=== PATIENT | male | born 1940 | race Caucasian/White ===

== ENCOUNTER → 2017-02-11 | Outpatient (REF) | payer MEDICARE, OTHER ==
[2017-02-11 18:50] LABS: ERYTHROCYTE SEDIMENTATION RATE 7 mm/hr (0-20); REASON FOR REVIEW COMPREHENSIVE REVIEW
== END ==
LOC: M LAB REF 17:35
PROVIDERS: ATTEND Internal Medicine Medical Oncology
DX: R59.9 Enlarged lymph nodes, unspecified (principal)

== ENCOUNTER 2017-11-19 15:17 | Emergency (ER) | payer OTHER ==
[2017-11-19 16:00] LABS: KETONE, URINE AUTO RFX NEGATIVE (NEGATIVE); MUCUS, URINE RFX SMALL (NEGATIVE); RBC, URINE AUTO RFX 5 /HPF (0-3); SPECIFIC GRAVITY UR AUTO RFX 1.009 (1.002-1.035); SQUAM EPITHELIAL CELL UR AURFX 0 /HPF (0-6)
[2017-11-19 16:03] LABS: LEUKOCYTE ESTERASE UR AUTO RFX 3+ (NEGATIVE); NITRITE, URINE AUTO RFX POSITIVE (NEGATIVE); WBC, URINE AUTO RFX TNTC /HPF (0-3)
[2017-11-19] MEDS: BACTRIM 160MG/800MG DS TAB PO (16:30)
== END 2017-11-19 16:44 | disposition home or self-care (01) ==
LOC: M ED 15:17
DX: N30.90 Cystitis, unspecified without hematuria (principal); E07.9 Disorder of thyroid, unspecified; Z79.890 Hormone replacement therapy; Z79.899 Other long term (current) drug therapy
CPT/HCPCS: 81001

== ENCOUNTER → 2019-04-09 | Outpatient (CLI) | payer MEDICARE ==
[~2019-04-09] MED LIST: BACT800T5 PO; LEVO137T2 PO; MULTCAP PO; OCUVCAP3 PO; TRAM37.53 PO
--- NOTE | 2019-04-09 15:36 | REP ---
Limited pelvic bladder sonography: History: Urinary tract infection. Findings: There is diffuse marked bladder wall thickening and trabeculation. No bladder mass lesion is appreciated. There are two large echogenic shadowing foci which may reflect the bladder calculi. It is difficult to exclude bladder mass lesion versus marked trabeculation. Pre-void bladder volume is calculated at 95 mL and postvoid bladder volume at 41 mL (43% postvoid residual). Multiple small diverticula are suspected. Impression: Markedly trabeculated bladder with an eccentrically thickened wall and multiple diverticula. Question bladder calculi. Neoplastic disease cannot be excluded. Electronically Signed by Marlo Lovett MD 04/09/2019 05:03 P
--- NOTE | 2019-04-09 15:56 | REP ---
Renal sonography: History: Urinary tract infection. Findings: Renal cortical echogenicity pattern is normal and contours are smooth. Right renal dimensions are 11.0 x 5.0 x 5.1 cm. Left kidney measures 10.6 x 4.8 x 5.4 cm. There is an accessory splenule in the left upper quadrant which is unchanged from comparison CT study August 07, 2017. No hydronephrosis is seen on either side. No renal mass lesion is observed. Impression: Negative renal sonography. Accessory splenule noted incidentally in the left upper quadrant. Electronically Signed by Marlo Lovett MD 04/09/2019 05:03 P
== END ==
LOC: M RAD 13:59
PROVIDERS: ATTEND Nurse Practitioner Family
DX: N39.0 Urinary tract infection, site not specified (principal)

== ENCOUNTER 2019-05-28 07:13 | Day surgery (SDC) | payer MEDICARE ==
[~2019-05-28] VITALS: Ht 175.3 cm; Wt 74.4 kg
[~2019-05-28 07:13] MED LIST changes: +ACETAMINOPHEN 1000MG 100ML IV BTL (OFIRMEV) (J0131 PER 10MG) As Ordered ONE; +FINA5TAB2 PO; +LIDOCAINE 1% MDV 20ML VIAL SQ PRN; +LIDOCAINE 2% INJ 100 MG/5 ML SDV (FOR ANES.) As Ordered ONE; +LR 1,000 ML IV ONE; +MIDAZOLAM INJ 2 MG/2 ML VIAL (J2250) As Ordered ONE; +OCUVTAB8 PO; +ONDANSETRON 4MG/2ML VIAL (J2405) As Ordered ONE; +PHENYLephrine HCL 500 MCG/5 ML (100MCG/ML) SYRINGE (J2370) As Ordered ONE; +TAMS1CAP17 PO; +TRIA37.53 PO; +ceFAZolin SOD 2 GM in IV 1 EA IV ONE; +dexameTHASONE 4 MG/ML 1ML VIAL (J1100) As Ordered ONE; +ePHEDrine SULFATE 25 MG/5 ML(5MG/ML) SYRINGE As Ordered ONE; +fentaNYL 100 MCG/2 ML INJECTION (J3010) As Ordered ONE; +propofoL 200 MG/20 ML VIAL As Ordered ONE
[2019-05-28] MEDS ORDERED: SULF1TAB93 PO (08:27)
[2019-05-28] MEDS ORDERED: CIPR500T3 PO (08:27)
[2019-05-28] MEDS ORDERED: BUPIVACAINE HCL 0.25% 30 ML VIAL As Ordered ONE (08:46)
[2019-05-28] MEDS ORDERED: ONDANSETRON 4MG/2ML VIAL (J2405) IV PRN (10:15)
[2019-05-28] MEDS ORDERED: fentaNYL 100 MCG/2 ML INJECTION (J3010) IV PRN (10:15)
[2019-05-28] MEDS ORDERED: IBUPROFEN 600 MG TAB PO PRN (10:30)
[2019-05-28 11:30] VITALS: BP 140/68
--- NOTE | 2019-05-29 20:46 | RO ---
DATE OF PROCEDURE: 05/28/2019 PREPROCEDURE DIAGNOSIS: Bladder calculi and penile (dictation cut off) POSTPROCEDURE DIAGNOSIS: Bladder foreign body, penile lesion and meatal stenosis. PROCEDURE: Cystoscopy with extraction of foreign body, excision of penile lesion and urethral dilation. SURGEON: Dr. Asael Sparrow SPRING TIER: ANESTHESIA: General. INDICATION FOR OPERATION: This is an 79-year-old white male who has bladder calculi and a penile lesion that he wishes removed. He was, therefore, brought to the operating room. DESCRIPTION OF PROCEDURE: The patient was anesthetized with general anesthesia, placed in the lithotomy position, prepped with Betadine paint and draped in an aseptic manner. Time-out was then performed. A 22-[place]ian cystoscope was attempted to be inserted into the meatus without success because of some narrowing. The urethral meatus was then dilated with Toña sounds to 26-Z[place]ian, and the scope was then easily introduced and advanced under direct vision of a 30-degree lens to the bladder. In the bladder, the patient was found to have 4+ trabeculation with numerous diverticula. The calculus was identified in the bladder, grasped with biopsy lithotrite forceps and was able to be extracted. No further calculi were identified even after examining all the diverticula openings. The bladder was then drained and cystoscope was removed. A #15 scalpel was then used to excise the lesion on the ventral surface of the penis at the median raphe. The area was cauterized for hemostasis, and the incision was closed with interrupted #3-0 chromic sutures. Skin glue was then applied to the area. Rectal examination shows a flat 20-gram prostate. The patient was then awakened and sent to recovery room in stable condition having tolerated the procedure well.
== END 2019-05-28 12:08 | disposition home or self-care (01) ==
LOC: M SDC 07:13
PROVIDERS: ATTEND Urology
DX: N21.0 Calculus in bladder (principal); N48.9 Disorder of penis, unspecified; A63.0 Anogenital (venereal) warts; N35.919 Unspecified urethral stricture, male, unspecified site; E03.9 Hypothyroidism, unspecified; Z79.899 Other long term (current) drug therapy
CPT/HCPCS: 52310; 54060; 88300; 88305; J0131; J0690; J1100; J2250; J2370; J2405; J3010

== ENCOUNTER → 2019-06-18 | Outpatient (REF) | payer MEDICARE ==
[~2019-06-18] MED LIST changes: -ACETAMINOPHEN 1000MG 100ML IV BTL (OFIRMEV) (J0131 PER 10MG) As Ordered ONE; +CIPR500T3 PO; -LIDOCAINE 1% MDV 20ML VIAL SQ PRN; -LIDOCAINE 2% INJ 100 MG/5 ML SDV (FOR ANES.) As Ordered ONE; -LR 1,000 ML IV ONE; -MIDAZOLAM INJ 2 MG/2 ML VIAL (J2250) As Ordered ONE; -ONDANSETRON 4MG/2ML VIAL (J2405) As Ordered ONE; -PHENYLephrine HCL 500 MCG/5 ML (100MCG/ML) SYRINGE (J2370) As Ordered ONE; +SULF1TAB93 PO; -ceFAZolin SOD 2 GM in IV 1 EA IV ONE; -dexameTHASONE 4 MG/ML 1ML VIAL (J1100) As Ordered ONE; -ePHEDrine SULFATE 25 MG/5 ML(5MG/ML) SYRINGE As Ordered ONE; -fentaNYL 100 MCG/2 ML INJECTION (J3010) As Ordered ONE; -propofoL 200 MG/20 ML VIAL As Ordered ONE
== END ==
LOC: M SMT 12:42
PROVIDERS: ATTEND Urology
DX: N39.0 Urinary tract infection, site not specified (principal)

== ENCOUNTER → 2020-05-13 | Outpatient (REF) | payer MEDICARE | LOC: M LAB REF 12:20 | PROVIDERS: ATTEND Ophthalmology | DX: D23.112 Other benign neoplasm of skin of right lower eyelid, including canthus (principal) ==

== ENCOUNTER → 2020-06-20 | Outpatient (CLI) | payer MEDICARE ==
--- NOTE | 2020-06-20 11:46 | REP ---
INDICATION: BLADDER STONE,CALCULUS IN BLADDER COMPARISON: 04/09/2019 TECHNIQUE: Real time B-mode ultrasound examination using curved array transducer. FINDINGS: Irregular chronic bladder wall thickening with scattered diverticula and pseudo diverticula are again appreciated and similar to prior examination. Ureteral jets were not visualized during exam. No obvious discrete mass noted. Prevoid bladder measures 7.9 x 5.3 x 4.5 cm (123 cc). Postvoid bladder measures 5.9 x 4.0 x 3.5 cm (54 cc). Postvoid residual: 44% IMPRESSION: 1. Chronic bladder changes. <Electronically signed by Ludin Ramirez > 06/20/20 1145
--- NOTE | 2020-06-20 11:52 | REP ---
INDICATION: BLADDER STONE,CALCULUS IN BLADDER COMPARISON: 04/09/2019 TECHNIQUE: Real time bhakta scale ultrasound examination using curved array transducer. FINDINGS: Bilateral kidneys are normal in contour, size, echogenicity, and reniform shape without hydronephrosis, nephrolithiasis, cystic or renal mass lesion. Right kidney measures 10.8 x 4.8 x 4.7 cm. Left kidney measures 11.2 x 4.9 x 4.7 cm. Incidental 2.3 cm splenule identified in the left upper quadrant. IMPRESSION: Normal renal ultrasound. <Electronically signed by Ludin Ramirez > 06/20/20 1149
== END ==
LOC: M RAD 10:45
PROVIDERS: ATTEND Nurse Practitioner Family
DX: N21.0 Calculus in bladder (principal)

== ENCOUNTER 2022-12-02 22:34 | Day surgery (SDC) | payer MEDICARE ==
[~2022-12-02] VITALS: Ht 157.5 cm; Wt 70.0 kg
[~2022-12-02 22:34] MED LIST changes: +BACTDSTA PO; -SULF1TAB93 PO; -TRIA37.53 PO; +TRIA37.577 PO
[2022-12-02] MEDS ORDERED: ONDANSETRON 4MG 2ML VIAL IV PRN (22:35)
[2022-12-02] MEDS ORDERED: ACETAMINOPHEN TAB 650MG DOSE (2X325MG) PO PRN (22:35)
[2022-12-03] VITALS (7 sets, daily range): BP systolic 83–121; BP diastolic 47–94; TEMP 97.3–97.9; O2SAT 93–100
[2022-12-03] MEDS ORDERED: LEVOTHYROXINE 150MCG TABLET (0.15MG) PO SCH (06:00)
[2022-12-03] MEDS ORDERED: LEVO150T7 PO (06:24)
[2022-12-03] MEDS ORDERED: FURO20TA2 PO (06:24)
[2022-12-03] MEDS ORDERED: HOME MED LIST COMPLETE! XX SCH (06:30)
[2022-12-03] MEDS ORDERED: ONDANSETRON 4MG 2ML VIAL As Ordered ONE (06:50)
[2022-12-03] MEDS ORDERED: propofoL 200 MG/20 ML VIAL As Ordered ONE (06:50)
[2022-12-03] MEDS ORDERED: LIDOCAINE 2% 100MG/5ML SDV (FOR ANES.) As Ordered ONE (06:51)
[2022-12-03] MEDS ORDERED: fentaNYL 100 MCG/2 ML INJECTION As Ordered ONE (06:53)
[2022-12-03] MEDS ORDERED: ceFAZolin SOD 2 GM in IV 1 EA IV ONE (07:20)
[2022-12-03] MEDS ORDERED: ceFAZolin 2 GM/D5W 50 ML IV BAG As Ordered ONE (07:28)
[2022-12-03 07:37] LABS: HEMATOCRIT 31.2 % (42.0-52.0); HEMOGLOBIN 9.3 g/dl (13.5-17.5); MEAN CORPUSCULAR HEMOGLOBIN 24.6 pg (27.0-33.0); MEAN CORPUSCULAR HGB CONC 29.8 g/dl (32.0-36.5); MEAN CORPUSCULAR VOLUME 82.5 fl (80.0-96.0); PLATELET COUNT, AUTOMATED 186 10^3/uL (150-450); RED BLOOD COUNT 3.78 10^6/uL (4.30-6.10); WHITE BLOOD COUNT 19.4 10^3/uL (4.0-10.0)
[2022-12-03 07:41] LABS: BLOOD UREA NITROGEN 26 MG/DL (9-23); CALCIUM LEVEL 8.3 MG/DL (8.3-10.6); CARBON DIOXIDE LEVEL 29 MMOL/L (20-31); CHLORIDE LEVEL 105 MMOL/L (98-107); CREATININE FOR GFR 0.98 MG/DL (0.70-1.30); GLOMERULAR FILTRATION RATE > 60.0 (>35); GLUCOSE, FASTING 101 MG/DL (74-106); POTASSIUM SERUM 3.8 MMOL/L (3.5-5.1); SODIUM LEVEL 140 MMOL/L (136-145)
[2022-12-03] MEDS ORDERED: ACETAMINOPHEN 1000MG 100ML IV BAG As Ordered ONE (07:43)
[2022-12-03] MEDS ORDERED: ONDANSETRON 4MG 2ML VIAL IV PRN (08:20)
[2022-12-03] MEDS ORDERED: HYDROMORPHONE HCL 0.5 MG/ 0.5 ML SYRINGE IV PRN (08:20)
[2022-12-03] MEDS ORDERED: LR 1,000 ML IV SCH (08:20)
[2022-12-03] MEDS ORDERED: fentaNYL 100 MCG/2 ML INJECTION IV PRN (08:20)
[2022-12-03] MEDS ORDERED: oxyCODONE 5MG TAB PO PRN (08:20)
[2022-12-03] MEDS ORDERED: BACT800T5 PO (08:41)
[2022-12-03] MEDS ORDERED: FINASTERIDE 5MG TAB PO SCH (09:00)
[2022-12-03] MEDS ORDERED: DYAZIDE 37.5/25 CAP (TRIAM/HCTZ) PO SCH (09:00)
[2022-12-03] MEDS ORDERED: TAMSULOSIN 0.4 MG CAP PO SCH (09:00)
[2022-12-03] MEDS ORDERED: FUROSEMIDE 40 MG TAB PO SCH (09:00)
== END 2022-12-03 13:30 | disposition home or self-care (01) ==
LOC: M SDC 22:34 → M MS5PR 12-03 00:13 → M SDC 12-03 13:30
PROVIDERS: ATTEND Urology
DX: T19.0XXA Foreign body in urethra, initial encounter (principal); E03.9 Hypothyroidism, unspecified; Z79.899 Other long term (current) drug therapy
CPT/HCPCS: 36415; 52310; 71045; 80048; 82365; 85027; A4215; C1769; J0131; J0690; J1100; J2405; J3010